=== PATIENT | male | born 1955 | race Caucasian/White ===

== ENCOUNTER 2025-07-13 08:41 | Emergency (ER) | payer OTHER ==
[~2025-07-13] VITALS: Ht 165.1 cm; Wt 95.3 kg
[2025-07-13] MEDS ORDERED: EPINEPHrine/Lidocaine Hydroc 20 ML VIAL IJ ONE (09:15)
== END 2025-07-13 10:48 | disposition home or self-care (01) ==
LOC: ED 08:41
DX: S01.81XA Laceration without foreign body of other part of head, initial encounter (principal); M25.512 Pain in left shoulder; I10 Essential (primary) hypertension; E78.5 Hyperlipidemia, unspecified; V47.5XXA Car driver injured in collision with fixed or stationary object in traffic accident, initial encounter; Y93.89 Activity, other specified; Y92.89 Other specified places as the place of occurrence of the external cause; Y99.8 Other external cause status